=== PATIENT | male | born 1955 | race Caucasian/White ===

== ENCOUNTER 2016-09-27 17:22 | Emergency (ER) | payer BC ==
[~2016-09-27] VITALS: Ht 175.3 cm; Wt 113.0 kg
[2016-09-27 19:16] VITALS: BP 128/82; PULSE 86; RESP 16; O2SAT 100
[2016-09-27] MEDS ORDERED: BUSP5TAB PO (19:34)
[2016-09-27] MEDS ORDERED: ALPR.25 PO (19:34)
[2016-09-27 20:04] VITALS: TEMP 98.5
[2016-09-27 20:08] LABS: AUTOMATED NEUTROPHIL # 7.5 TH/MM3 (1.8-7.7); BASOPHIL % 0.4 % (0.0-2.0); EOSINOPHIL % 0.2 % (0.0-4.0); HEMATOCRIT 28.8 % (39.0-51.0); LYMPH % 3.3 % (9.0-44.0); LYMPHOCYTE # 0.3 TH/MM3 (1.0-4.8); MEAN CELL VOLUME 88.8 FL (80.0-100.0); MEAN CORPUSCULAR HEMOGLOBIN 29.7 PG (27.0-34.0); MEAN CORPUSCULAR HGB CONC 33.5 % (32.0-36.0); MONO % 6.4 % (0.0-8.0); NEUT % 89.7 % (16.0-70.0); PLATELET COUNT 166 TH/MM3 (150-450); RED BLOOD COUNT 3.24 MIL/MM3 (4.50-5.90); RED CELL DISTRIBUTION WIDTH 20.6 % (11.6-17.2); WHITE BLOOD COUNT 8.3 TH/MM3 (4.0-11.0)
--- NOTE | 2016-09-27 20:42 | PD ---
HPI Chief Complaint: Syncope/Near-Syncope Time Seen by Provider: 19:30 Travel History International Travel<30 days: No Contact w/Intl Traveler<30days: No Traveled to known affect area: No History of Present Illness HPI 61-year-old male arrives by EMS. He has a history of esophageal and gastric cancer. His last chemotherapy was about 10 days prior. He had a syncope episode today. He reached for a rail and then fell to the ground. He does not member the fall however remembers waking up with a woman talking to him. A similar event occurred about 6 months ago and was associated with a hemoglobin of 6.0. The patient notes start stool from last week however seen no blood in his stool or dark stool over the past couple days. He is quite attentive to the color of the stool he prefers to defer a rectal exam at the time of interview. He reports nausea earlier which has since resolved. Patient states he thinks he should drink more water and believes he might be dehydrated. He follows with primary care and oncology in [place]. He states esophageal cancer is stage IV, diagnosed in April. No chest pain or shortness of breath precipitated the syncope event. PFSH Past Medical History Anxiety: Yes Depression: Yes Cancer: Yes (ESOPHAGEAL ) Chemotherapy: Yes Tetanus Vaccination: > 5 Years Past Surgical History Abdominal Surgery: Yes (LAPBAND) Other Surgery: Yes (PARATHYROID ) Social History Alcohol Use: Yes Tobacco Use: No Substance Use: No Allergies-Medications (Allergen,Severity, Reaction): Coded Allergies: No Known Allergies (Unverified , 09/27/16) Reported Meds & Prescriptions Reported Meds & Active Scripts Active Reported Xanax (Alprazolam) 0.25 Mg Tab 0.25 Mg PO Q4H PRN Buspirone (Buspirone HCl) 5 Mg Tab 5 Mg PO BID Buspirone (Buspirone HCl) 5 Mg Tab 5 Mg PO BID Review of Systems Except as stated in HPI: all other systems reviewed are Neg General / Constitutional: No: Fever Gastrointestinal: Positive: Nausea, No: Abdominal Pain Neurologic: Positive: Change in Mentation Physical Exam Narrative GENERAL: Pleasant WNND 61 yo M, no acute distress SKIN: Warm and dry. HEAD: Atraumatic. Normocephalic. EYES: Pupils equal and round. No scleral icterus. No injection or drainage. ENT: No nasal bleeding or discharge. Mucous membranes pink and moist. Trace dried blood on face. NECK: Trachea midline. No JVD. CARDIOVASCULAR: Regular rate and rhythm. RESPIRATORY: No accessory muscle use. Clear to auscultation. Breath sounds equal bilaterally. GASTROINTESTINAL: Abdomen soft, non-tender, nondistended. Hepatic and splenic margins not palpable. MUSCULOSKELETAL: Extremities without clubbing, cyanosis, or edema. No obvious deformities. NEUROLOGICAL: Awake and alert. No obvious cranial nerve deficits. Motor grossly within normal limits. Five out of 5 muscle strength in the arms and legs. Normal speech. PSYCHIATRIC: Appropriate mood and affect; insight and judgment normal. Data Data Last Documented VS Vital Signs Date Time Temp Pulse Resp B/P Pulse Ox O2 Delivery O2 Flow Rate FiO2 09/27/16 20:04 98.5 09/27/16 19:16 86 16 128/82 100 VS reviewed Orders Complete Blood Count With Diff (09/27/16 19:30) Type And Screen (09/27/16 19:30) Ecg Monitoring (09/27/16 19:30) Iv Access Insert/Monitor (09/27/16 19:30) Oximetry (09/27/16 19:30) Electrocardiogram (09/27/16 ) Basic Metabolic Panel (Bmp) (09/27/16 19:49) Ns (Bolus) Inj (09/27/16 21:30) Labs Laboratory Tests Test 09/27/16 19:30 White Blood Count 8.3 TH/MM3 Red Blood Count 3.24 MIL/MM3 Hemoglobin 9.6 GM/DL Hematocrit 28.8 % Mean Corpuscular Volume 88.8 FL Mean Corpuscular Hemoglobin 29.7 PG Mean Corpuscular Hemoglobin 33.5 % Concent Red Cell Distribution Width 20.6 % Platelet Count 166 TH/MM3 Mean Platelet Volume 8.3 FL Neutrophils (%) (Auto) 89.7 % Lymphocytes (%) (Auto) 3.3 % Monocytes (%) (Auto) 6.4 % Eosinophils (%) (Auto) 0.2 % Basophils (%) (Auto) 0.4 % Neutrophils # (Auto) 7.5 TH/MM3 Lymphocytes # (Auto) 0.3 TH/MM3 Monocytes # (Auto) 0.5 TH/MM3 Eosinophils # (Auto) 0.0 TH/MM3 Basophils # (Auto) 0.0 TH/MM3 CBC Comment AUTO DIFF Sodium Level 139 MEQ/L Potassium Level 4.9 MEQ/L Chloride Level 107 MEQ/L Carbon Dioxide Level 24.4 MEQ/L Anion Gap 8 MEQ/L Blood Urea Nitrogen 12 MG/DL Creatinine 0.80 MG/DL Estimat Glomerular Filtration 98 ML/MIN Rate Random Glucose 110 MG/DL Calcium Level 8.6 MG/DL Blood Type O POSITIVE Antibody Screen NEGATIVE Blood Bank Comment MDM Medical Decision Making Medical Screen Exam Complete: Yes Emergency Medical Condition: Yes Differential Diagnosis Anemia, arrhythmia, renal failure, GI bleed Narrative Course EKG reveals sinus rhythm with a rate of 85 normal axis and intervals no ischemic injury pattern, no preexcitation morphology CBC & BMP Diagram 09/27/16 19:30 Patient reports feeling much better at 9:20 PM. He has received 500 cc normal saline. He reports his hemoglobin to have been 10.0 about 2 weeks ago. This scenario acute GI bleed causing volume loss leading to these considered much less likely. The patient reiterates that a recent history of decreased water intake a few times. He understands arrhythmia or possible GI bleed has not been definitively excluded. He has excellent outpt follow up and will f/u w pmd for further eval. 1L add'l NS added. Diagnosis Primary Impression: Syncope and collapse Referrals: Oncologist Primary Care Physician Additional Instructions: You have a choice when it comes to health care, and we are glad that you chose [facility]. Hopefully, we have met your expectations on today's visit. You are welcome to return to [facility] at any time, as we are committed to meeting the health care needs of our community. Med/Other Pt SpecificInfo: No Change to Meds Disposition: 01 DISCHARGE HOME Condition: Stable Pancho Heredia MD Sep 27, 2016 20:42
[2016-09-27 21:09] LABS: BICARBONATE 24.4 MEQ/L (21.0-32.0)
[2016-09-27 21:12] LABS: POTASSIUM 4.9 MEQ/L (3.5-5.1)
[2016-09-27 21:17] LABS: HEMO FLAGS AUTO DIFF
[2016-09-27 21:23] LABS: BANDS 12 % (0-6); BASOPHILS 1 % (0-2); EOSINOPHILS 1 % (0-4); NEUTROPHIL # MANUAL DIFF 7.9 TH/MM3 (1.8-7.7); POLYS (SEG NEUTROPHILS) 83 % (16-70); WBC DIFF SAMPLE 100
[2016-09-27 21:25] LABS: OVALOCYTES 1+ (NORMAL)
[2016-09-27 21:26] LABS: BURR CELLS 1+ (NORMAL)
[2016-09-27 21:29] LABS: PLATELET ESTIMATE SMEAR NORMAL (NORMAL); SCAN/DIFF FINAL DIFF MANUAL
[2016-09-27 21:30] LABS: PLATELET MORPHOLOGY NORMAL (NORMAL)
[2016-09-27] MEDS ORDERED: SODIUM CHLOR 0.9% 1000 ML INJ 1,000 ML IV ONE (21:30)
[2016-09-27 22:21] VITALS: BP 151/90; PULSE 89; RESP 18; O2SAT 100
--- NOTE | 2016-09-29 21:24 | EKG ---
Date Performed: 09/27/2016 Time Performed: 20:13:52 PTAGE: 61 years EKG: Sinus rhythm BORDERLINE LEFT AXIS DEVIATION BORDERLINE ECG NO PREVIOUS TRACING DOCTOR: Sami Tinajero Interpretating Date/Time 09/29/2016 21:22:07
== END 2016-09-27 22:48 | disposition home or self-care (01) ==
LOC: NEPC 17:22
DX: C15.9 Malignant neoplasm of esophagus, unspecified (principal); R55 Syncope and collapse
CPT/HCPCS: 80048; 85007; 85027; 86850; 86900; 86901; 93005; 96360; 99284; J7030